=== PATIENT | male | born 1980 | race Asian ===

== ENCOUNTER 2016-12-01 11:25 | Emergency (ER) | payer OTHER ==
[~2016-12-01] VITALS: Wt 74.5 kg
[2016-12-01] MEDS ORDERED: ONDANSETRON (ODT) 4 MG TAB ODT STA (12:38)
[2016-12-01] MEDS ORDERED: ACETAMINOPHEN 325 MG TAB PO ONE (13:00)
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
[2016-12-01] MEDS ORDERED: ACET500C5 PO (13:48)
[2016-12-01] MEDS ORDERED: ONDA4TAB14 PO (13:48)
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
== END 2016-12-01 14:27 | disposition home or self-care (01) ==
LOC: FTE 11:25
DX: S09.90XA Unspecified injury of head, initial encounter (principal); R11.10 Vomiting, unspecified; R51 Headache; Y08.89XA Assault by other specified means, initial encounter
CPT/HCPCS: 70450; Z7502; Z7610